=== PATIENT | male | born 1955 | race Caucasian/White ===

== ENCOUNTER 2017-03-02 11:10 | Emergency (ER) | payer SELFPAY ==
[~2017-03-02] VITALS: Ht 167.6 cm; Wt 63.6 kg
[2017-03-02] MEDS ORDERED: HYDR-3707 PO (11:18)
[2017-03-02 11:27] LABS: GLUCOSE,POINT OF CARE 203 MG/DL (70-110)
[2017-03-02 11:39] VITALS: BP 139/85
== END 2017-03-02 12:02 | disposition home or self-care (01) ==
LOC: EMS 11:12
DX: J40 Bronchitis, not specified as acute or chronic (principal); H57.8 Other specified disorders of eye and adnexa; F17.200 Nicotine dependence, unspecified, uncomplicated; E11.9 Type 2 diabetes mellitus without complications
CPT/HCPCS: 82962; 99283; 99406

== ENCOUNTER 2017-09-26 20:53 | Emergency (ER) | payer SELFPAY ==
[~2017-09-26] VITALS: Ht 167.6 cm; Wt 63.6 kg
[~2017-09-26 20:53] MED LIST: HYDR-3707 PO
[2017-09-26 21:33] LABS: BASOPHILS # (AUTO) 0.02 K/uL (0.00-0.20); BASOPHILS % (AUTO) 0.3 % (0.0-2.0); EOSINOPHILS # (AUTO) 0.09 K/uL (0.00-0.70); EOSINOPHILS % (AUTO) 1.46 % (1.0-6.0); HEMATOCRIT 42.2 % (41-53); HEMOGLOBIN 14.3 g/dL (13.5-17.5); LYMPHOCYTES # (AUTO) 1.2 K/uL (1.0-4.8); LYMPHOCYTES % (AUTO) 19.4 % (22.0-44.0); MEAN CORPUSCULAR HGB CONC 33.8 G/dL (31.0-37.0); MEAN CORPUSCULAR VOLUME 98 fL (80-100); MONOCYTES # (AUTO) 0.5 K/uL (0.1-1.0); MONOCYTES % (AUTO) 7.2 % (2.0-9.0); NEUTROPHILS # (AUTO) 4.6 K/uL (1.8-7.7); NEUTROPHILS % (AUTO) 71.7 % (40.0-70.0); PLATELET COUNT (AUTO) 210 K/uL (150-450); RED BLOOD CELL COUNT(AUTO) 4.32 MIL/uL (4.50-5.90); WHITE BLOOD COUNT (AUTO) 6.4 K/uL (4.5-11.0)
[2017-09-26 21:41] LABS: ANION GAP 5 mmol/L (8-16); CALCIUM, TOTAL 8.7 mg/dL (8.8-10.5); CARBON DIOXIDE 28 mmol/L (22-29); CHLORIDE 103 mmol/L (98-107); CREATININE 1.34 mg/dL (0.60-1.30); GLOMERULAR FILTR. RATE CALC 54 mL/min (>60); POTASSIUM 3.9 mmol/L (3.5-5.1); SODIUM SERUM 136 mmol/L (136-145); UREA NITROGEN, BLOOD 12 mg/dL (7-18)
[2017-09-26 21:44] LABS: ALANINE AMINOTRANSFERASE 22 U/L (12-78); ASPARTATE AMINOTRANSFERASE 15 U/L (15-37); BILIRUBIN,TOTAL 0.5 mg/dL (0.1-1.0); TOTAL PROTEIN, SERUM 7.3 g/dL (6.4-8.2)
[2017-09-26] MEDS ORDERED: LORazepam 1 MG TABLET PO ONE (21:45)
[2017-09-26 22:47] VITALS: BP 142/85
== END 2017-09-26 22:55 | disposition home or self-care (01) ==
LOC: EMS 20:54
DX: T43.621A Poisoning by amphetamines, accidental (unintentional), initial encounter (principal); F15.10 Other stimulant abuse, uncomplicated; E11.9 Type 2 diabetes mellitus without complications; F17.210 Nicotine dependence, cigarettes, uncomplicated; Y92.89 Other specified places as the place of occurrence of the external cause
CPT/HCPCS: 36415; 80053; 80307; 82962; 85025; 99285; 99406; G0480

== ENCOUNTER 2017-12-09 18:06 | Emergency (ER) | payer OTHER, MEDICARE ==
[~2017-12-09] VITALS: Ht 167.6 cm; Wt 66.0 kg
[2017-12-09 20:57] LABS: GLUCOSE,POINT OF CARE 188 MG/DL (70-110)
[2017-12-09] MEDS ORDERED: FLUORESCEIN SODIUM 1 MG STRIP ONE (21:08)
[2017-12-09] MEDS ORDERED: PROPARACAINE HCL 0.5% 15 ML OPHTHALMIC SOLUTION OU ONE (21:15)
[2017-12-09 22:08] VITALS: BP 129/75
== END 2017-12-09 22:10 | disposition home or self-care (01) ==
LOC: EMS 18:08
DX: F22 Delusional disorders (principal); E11.9 Type 2 diabetes mellitus without complications
CPT/HCPCS: 82962; 99282

== ENCOUNTER 2017-12-12 21:57 | Emergency (ER) | payer OTHER, MEDICARE ==
[~2017-12-12] VITALS: Ht 167.6 cm; Wt 59.1 kg
[2017-12-12 22:08] VITALS: BP 145/89
[2017-12-12 22:17] LABS: GLUCOSE,POINT OF CARE 128 MG/DL (70-110)
[2017-12-12] MEDS ORDERED: HYDR-3705 PO (22:20)
[2017-12-12] MEDS ORDERED: METF500T4 PO (22:20)
[2017-12-12] MEDS ORDERED: DSS100 PO (22:20)
[2017-12-12 22:47] LABS: BASOPHILS # (AUTO) 0.03 K/uL (0.00-0.20); BASOPHILS % (AUTO) 0.4 % (0.0-2.0); EOSINOPHILS # (AUTO) 0.11 K/uL (0.00-0.70); EOSINOPHILS % (AUTO) 1.41 % (1.0-6.0); HEMATOCRIT 42.8 % (41-53); HEMOGLOBIN 14.4 g/dL (13.5-17.5); LYMPHOCYTES # (AUTO) 1.8 K/uL (1.0-4.8); LYMPHOCYTES % (AUTO) 24.6 % (22.0-44.0); MEAN CORPUSCULAR HEMOGLOBIN 32.8 pg (26.0-34.0); MEAN CORPUSCULAR HGB CONC 33.6 G/dL (31.0-37.0); MEAN CORPUSCULAR VOLUME 97 fL (80-100); MONOCYTES # (AUTO) 0.4 K/uL (0.1-1.0); MONOCYTES % (AUTO) 5.4 % (2.0-9.0); NEUTROPHILS # (AUTO) 5.1 K/uL (1.8-7.7); NEUTROPHILS % (AUTO) 68.2 % (40.0-70.0); PLATELET COUNT (AUTO) 254 K/uL (150-450); RED BLOOD CELL COUNT(AUTO) 4.39 MIL/uL (4.50-5.90); RED CELL DISTRIBUTION WIDTH 13.3 % (11.5-14.5)
[2017-12-12 22:59] LABS: ANION GAP 6 mmol/L (8-16); CALCIUM, TOTAL 8.9 mg/dL (8.8-10.5); CARBON DIOXIDE 32 mmol/L (22-29); CHLORIDE 101 mmol/L (98-107); CREATININE 0.95 mg/dL (0.60-1.30); GLOMERULAR FILTR. RATE CALC > 60 mL/min (>60); GLUCOSE,RANDOM 107 mg/dL (70-110); POTASSIUM 3.4 mmol/L (3.5-5.1); SODIUM SERUM 139 mmol/L (136-145); UREA NITROGEN, BLOOD 12 mg/dL (7-18)
[2017-12-12 23:04] LABS: ALANINE AMINOTRANSFERASE 25 U/L (12-78); ALBUMIN 3.8 g/dL (3.4-5.0); ALKALINE PHOSPHATASE 90 U/L (46-116); ASPARTATE AMINOTRANSFERASE 22 U/L (15-37); BILIRUBIN,TOTAL 0.3 mg/dL (0.1-1.0); TOTAL PROTEIN, SERUM 7.9 g/dL (6.4-8.2)
[2017-12-12 23:40] LABS: AMPHET/METH SCREEN,URINE POSITIVE (NEGATIVE); BARBITURATE SCREEN, URINE NEGATIVE (NEGATIVE); BENZODIAZEPINES SCREEN,URINE NEGATIVE (NEGATIVE); CANNABINOID SCREEN,URINE NEGATIVE (NEGATIVE); COCAINE SCREEN,URINE NEGATIVE (NEGATIVE); METHADONE SCREEN, URINE NEGATIVE (NEGATIVE); OPIATE SCREEN,URINE NEGATIVE (NEGATIVE)
[2017-12-12 23:48] LABS: PHENCYCLIDINE SCREEN,URINE NEGATIVE (NEGATIVE)
== END 2017-12-12 23:52 | disposition left against medical advice (07) ==
LOC: EMS 21:58
DX: R44.3 Hallucinations, unspecified (principal); Z53.21 Procedure and treatment not carried out due to patient leaving prior to being seen by health care provider
CPT/HCPCS: 36415; 80053; 80307; 82962; 85025; G0480

== ENCOUNTER 2018-06-13 07:34 | Inpatient (IN) | payer OTHER, MEDICARE ==
[~2018-06-13] VITALS: Ht 167.6 cm; Wt 61.9 kg
[~2018-06-13 07:34] MED LIST changes: +DSS100 PO; +HYDR-3705 PO; -HYDR-3707 PO; +METF500T6 PO
[2018-06-13 08:06] LABS: BASOPHILS % (AUTO) 0.5 % (0.0-2.0); EOSINOPHILS % (AUTO) 3.7 % (1.0-6.0); HEMATOCRIT 40.3 % (41-53); LYMPHOCYTES % (AUTO) 15.3 % (22.0-44.0); MEAN CORPUSCULAR HEMOGLOBIN 33.4 pg (26.0-34.0); MEAN CORPUSCULAR HGB CONC 34.7 G/dL (31.0-37.0); MEAN CORPUSCULAR VOLUME 96 fL (80-100); MONOCYTES # (AUTO) 0.5 K/uL (0.1-1.0); MONOCYTES % (AUTO) 7.4 % (2.0-9.0); NEUTROPHILS # (AUTO) 4.7 K/uL (1.8-7.7); NEUTROPHILS % (AUTO) 73.1 % (40.0-70.0); PLATELET COUNT (AUTO) 235 K/uL (150-450); RED BLOOD CELL COUNT(AUTO) 4.19 MIL/uL (4.50-5.90); RED CELL DISTRIBUTION WIDTH 13.5 % (11.5-14.5)
[2018-06-13 08:08] LABS: GLUCOSE,POINT OF CARE 164 MG/DL (70-110)
[2018-06-13] MEDS ORDERED: METF500T6 PO (08:09)
[2018-06-13 08:17] LABS: ANION GAP 15 mmol/L (8-16); CALCIUM, TOTAL 8.7 mg/dL (8.8-10.5); CARBON DIOXIDE 23 mmol/L (22-29); CHLORIDE 105 mmol/L (98-107); CREATININE 1.17 mg/dL (0.60-1.30); GLOMERULAR FILTR. RATE CALC > 60 mL/min (>60); GLUCOSE,RANDOM 203 mg/dL (70-110); POTASSIUM 3.5 mmol/L (3.5-5.1); SODIUM SERUM 143 mmol/L (136-145); UREA NITROGEN, BLOOD 11 mg/dL (7-18)
[2018-06-13 08:21] LABS: ALANINE AMINOTRANSFERASE 40 U/L (12-78); ALBUMIN 3.7 g/dL (3.4-5.0); ALKALINE PHOSPHATASE 92 U/L (46-116); ASPARTATE AMINOTRANSFERASE 39 U/L (15-37); BILIRUBIN,TOTAL 0.7 mg/dL (0.1-1.0); TOTAL PROTEIN, SERUM 7.3 g/dL (6.4-8.2)
[2018-06-13 15:28] LABS: GLUCOSE,POINT OF CARE 100 MG/DL (70-110)
[2018-06-13 17:09] LABS: AMPHET/METH SCREEN,URINE POSITIVE (NEGATIVE); BARBITURATE SCREEN, URINE NEGATIVE (NEGATIVE); BENZODIAZEPINES SCREEN,URINE NEGATIVE (NEGATIVE); CANNABINOID SCREEN,URINE NEGATIVE (NEGATIVE); COCAINE SCREEN,URINE NEGATIVE (NEGATIVE); METHADONE SCREEN, URINE NEGATIVE (NEGATIVE); OPIATE SCREEN,URINE NEGATIVE (NEGATIVE); PHENCYCLIDINE SCREEN,URINE NEGATIVE (NEGATIVE)
[2018-06-13] MEDS: LORazepam 2 MG TABLET PO PRN (19:21)
[2018-06-13] MEDS: OLANZapine 5 MG TABLET PO SCH ×2 (21:00→21:31)
[2018-06-14 05:42] LABS: CHOL/HDL RATIO 3.4 (4.2-7.3)
[2018-06-14 09:38] VITALS: BP 132/70
[2018-06-14] MEDS: OLANZapine 5 MG TABLET PO SCH ×2 (09:50→17:15)
[2018-06-14] MEDS ORDERED: MAGNESIUM HYDROXIDE SUSPENSION 30 ML UDCUP PO PRN (11:00)
[2018-06-14] MEDS ORDERED: ACETAMINOPHEN 325 MG TABLET PO PRN (11:00)
[2018-06-14] MEDS ORDERED: LOPERAMIDE HCL 2 MG CAPSULE PO PRN (11:00)
[2018-06-14] MEDS ORDERED: MAG HYDROX/AL HYDROX/SIMETH ES 30 ML SUSPENSION UDCUP PO PRN (11:00)
[2018-06-14] MEDS ORDERED: PETROLATUM,WHITE 71 GM JELLY TP PRN (11:00)
[2018-06-14] MEDS ORDERED: ONDANSETRON HCL 4 MG TABLET PO PRN (11:00)
[2018-06-14] MEDS ORDERED: DOCUSATE SODIUM 100 MG CAPSULE PO PRN (11:00)
[2018-06-14] MEDS ORDERED: IBUPROFEN 400 MG TABLET PO PRN (11:00)
[2018-06-14 17:13] LABS: GLUCOMETER DEV NAME(LOC) 3EX 1; GLUCOSE,POINT OF CARE 109 MG/DL (70-110)
[2018-06-14] MEDS: MetFORMIN HCL 500 MG TABLET PO SCH (17:15)
[2018-06-14 17:33] VITALS: BP 108/71
[2018-06-15] MEDS: MetFORMIN HCL 500 MG TABLET PO SCH ×2 (06:15→17:09)
[2018-06-15 06:21] LABS: HEMOGLOBIN A1C 6.4 % (4.5-6.2)
[2018-06-15 06:23] LABS: CHOL/HDL RATIO 3.8 (4.2-7.3)
[2018-06-15 08:11] VITALS: BP 118/71
[2018-06-15] MEDS: OLANZapine 5 MG TABLET PO SCH ×2 (08:48→17:09)
[2018-06-15] MEDS: NICOTINE 14 MG/24 HOUR PATCH TD SCH (08:55)
[2018-06-15 17:04] LABS: GLUCOMETER DEV NAME(LOC) 3EX 1; GLUCOSE,POINT OF CARE 160 MG/DL (70-110)
[2018-06-15 19:21] VITALS: BP 110/74
[2018-06-16 06:14] LABS: GLUCOMETER DEV NAME(LOC) PVLAB139; GLUCOSE,POINT OF CARE 120 MG/DL (70-110)
[2018-06-16] MEDS: MetFORMIN HCL 500 MG TABLET PO SCH ×2 (07:30→16:38)
[2018-06-16] MEDS: OLANZapine 5 MG TABLET PO SCH ×2 (09:00→16:46)
[2018-06-16] MEDS: NICOTINE 14 MG/24 HOUR PATCH TD SCH (09:00)
[2018-06-16 09:13] VITALS: BP 130/98
[2018-06-16 12:29] LABS: GLUCOSE,POINT OF CARE 104 MG/DL (70-110)
[2018-06-16 12:29] LABS: GLUCOSE,POINT OF CARE 112 MG/DL (70-110)
[2018-06-16 16:48] LABS: GLUCOMETER DEV NAME(LOC) 3EX 1; GLUCOSE,POINT OF CARE 100 MG/DL (70-110)
[2018-06-16 18:55] VITALS: BP 111/71
[2018-06-17 06:00] LABS: GLUCOMETER DEV NAME(LOC) PVLAB139; GLUCOSE,POINT OF CARE 109 MG/DL (70-110)
[2018-06-17] MEDS: MetFORMIN HCL 500 MG TABLET PO SCH ×2 (06:12→17:05)
[2018-06-17] MEDS: LORazepam 2 MG TABLET PO PRN (07:55)
[2018-06-17] MEDS: OLANZapine 5 MG TABLET PO SCH ×2 (07:55→16:07)
[2018-06-17] MEDS: NICOTINE 14 MG/24 HOUR PATCH TD SCH (08:00)
[2018-06-17 08:32] VITALS: BP 131/80
[2018-06-17 16:03] LABS: GLUCOMETER DEV NAME(LOC) 3EX 1; GLUCOSE,POINT OF CARE 144 MG/DL (70-110)
[2018-06-17 16:51] VITALS: BP 98/63
[2018-06-17] MEDS: ZOLPIDEM TARTRATE 10 MG TABLET PO PRN (22:44)
[2018-06-18 05:23] LABS: GLUCOMETER DEV NAME(LOC) PVLAB139; GLUCOSE,POINT OF CARE 88 MG/DL (70-110)
[2018-06-18] MEDS: MetFORMIN HCL 500 MG TABLET PO SCH ×2 (07:25→16:45)
[2018-06-18 08:39] VITALS: BP 136/86
[2018-06-18] MEDS: OLANZapine 5 MG TABLET PO SCH ×2 (08:43→16:19)
[2018-06-18] MEDS: NICOTINE 14 MG/24 HOUR PATCH TD SCH (08:43)
[2018-06-18 16:53] LABS: GLUCOMETER DEV NAME(LOC) 3EX 1; GLUCOSE,POINT OF CARE 123 MG/DL (70-110)
[2018-06-18 17:35] VITALS: BP 112/63
[2018-06-18] MEDS: ZOLPIDEM TARTRATE 10 MG TABLET PO PRN (21:32)
[2018-06-19 05:43] LABS: GLUCOMETER DEV NAME(LOC) PVLAB139; GLUCOSE,POINT OF CARE 93 MG/DL (70-110)
[2018-06-19] MEDS: MetFORMIN HCL 500 MG TABLET PO SCH (07:18)
[2018-06-19 08:46] VITALS: BP 160/80
[2018-06-19] MEDS: NICOTINE 14 MG/24 HOUR PATCH TD SCH (09:01)
[2018-06-19] MEDS: OLANZapine 5 MG TABLET PO SCH (09:02)
[2018-06-19] MEDS ORDERED: OLAN5TAB27 PO (11:15)
[2018-06-19] MEDS ORDERED: OLAN5TAB2 PO (11:57)
== END 2018-06-19 13:10 | disposition home or self-care (01) | DRG 885 ==
LOC: EMS 07:34 → B2X 20:00 → UNDOADMIN 20:00 → 3EX 06-14 08:32
PROVIDERS: ADMIT Psychiatry & Neurology Psychiatry; ATTEND Psychiatry & Neurology Psychiatry
DX: F20.0 Paranoid schizophrenia (principal); E11.9 Type 2 diabetes mellitus without complications; E83.51 Hypocalcemia; F15.10 Other stimulant abuse, uncomplicated; M54.9 Dorsalgia, unspecified; G89.29 Other chronic pain; Z59.0 Homelessness; Z90.49 Acquired absence of other specified parts of digestive tract; Z79.899 Other long term (current) drug therapy; Z79.84 Long term (current) use of oral hypoglycemic drugs; Z71.51 Drug abuse counseling and surveillance of drug abuser
CPT/HCPCS: 83036; 99285; G0480

== ENCOUNTER 2018-07-17 06:18 | Emergency (ER) | payer OTHER, MEDICARE ==
[~2018-07-17] VITALS: Ht 167.6 cm; Wt 62.0 kg
[~2018-07-17 06:18] MED LIST changes: -DSS100 PO; -HYDR-3705 PO; +METF-960 PO; -METF500T6 PO; +OLAN5TAB2 PO; +OLAN5TAB27 PO
[2018-07-17 06:32] VITALS: BP 123/92
[2018-07-17] MEDS ORDERED: BUPIVACAINE HCL/PF 0.25% 10 ML VIAL INJ ONE (06:45)
[2018-07-17] MEDS ORDERED: PERTUSS(ACELL),DIPH,TET VAC/PF 0.5 ML VIAL IM ONE (06:45)
== END 2018-07-17 07:33 | disposition home or self-care (01) ==
LOC: EMS 06:19
DX: S81.812A Laceration without foreign body, left lower leg, initial encounter (principal); S91.311A Laceration without foreign body, right foot, initial encounter; R45.1 Restlessness and agitation; E11.9 Type 2 diabetes mellitus without complications; F20.9 Schizophrenia, unspecified; F15.90 Other stimulant use, unspecified, uncomplicated; W54.0XXA Bitten by dog, initial encounter; Y93.89 Activity, other specified; Y92.89 Other specified places as the place of occurrence of the external cause; Y99.8 Other external cause status
CPT/HCPCS: 12002; 90471; 90715; 99284; J3490